=== PATIENT | female | born 1940 | race Caucasian/White ===

== ENCOUNTER → 2016-11-10 | Outpatient (CLI) | payer MEDICARE, BC ==
--- NOTE | 2016-11-10 10:09 | US ---
EXAMINATION TYPE: US extremity nonvasculr ltd RT DATE OF EXAM: 11/10/2016 9:28 AM COMPARISON: NONE CLINICAL HISTORY: Pain. FINDINGS: Complex appearing cyst measuring 7.3 x 6.3 x 5.5cm within the posterior popliteal fossa IMPRESSION: 1. Large 7.3 cm complicated cyst most likely in the basis of a complicated Byrne's cyst. Follow-up MR I could be obtained for confirmation.
== END ==
LOC: RADUSMAIN 08:47
PROVIDERS: ATTEND Orthopaedic Surgery
DX: M71.21 Synovial cyst of popliteal space [Baker], right knee (principal); M25.561 Pain in right knee

== ENCOUNTER 2016-11-16 08:46 | Day surgery (SDC) | payer MEDICARE, BC ==
[2016-11-16] MEDS ORDERED: TRIAMCINOLONE ACETONIDE 40 MG/ML 1 ML VIAL INTRABURSA ONE (10:31)
--- NOTE | 2016-11-16 12:38 | US ---
EXAMINATION TYPE: US fine needle aspiration DATE OF EXAM: 11/16/2016 11:59 AM HISTORY: Aspiration of right Byrne's cyst Comparison: None. Informed consent was obtained and all the patient's questions were answered. The patient's right popl iteal fossa cyst was localized sonographically. Standard sterile technique was utilized as well as ap propriate local anesthesia with 1% lidocaine and bicarbonate. An 18-gauge needle was introduced into the Byrne's cyst and approximately 150 cc of brownish colored fluid was aspirated. Approximately 95% of the cyst was aspirated. Subsequently steroid was injected into the Byrne's cyst followed by a smal l amount of lidocaine. The patient tolerated the procedure well and left the department in stable condition. IMPRESSION: 1. Successful ultrasound-guided aspiration of Byrne's cyst.
[2016-11-16 12:57] VITALS: TEMP 98
[2016-11-16 13:07] VITALS: BP 104/64; PULSE 66; RESP 18
== END 2016-11-16 12:00 | disposition home or self-care (01) ==
LOC: RADPROMAIN 08:46
PROVIDERS: ATTEND Orthopaedic Surgery
DX: M71.21 Synovial cyst of popliteal space [Baker], right knee (principal)
CPT/HCPCS: 87070; 87205; 87075; 76942; 10022; J3301; 87077; 87186

== ENCOUNTER 2016-12-10 17:58 | Emergency (ER) | payer MEDICARE, BC, OTHER ==
[2016-12-10 18:09] VITALS: BP 107/58; PULSE 88; TEMP 98.7
--- NOTE | 2016-12-10 18:20 | ED ---
General Adult HPI - General Chief complaint: Recheck/Abnormal Lab/Rx Stated complaint: PEG TUBE REPLACEMENT Time Seen by Provider: 12/10/16 18:05 Source: EMS Mode of arrival: EMS Limitations: no limitations - History of Present Illness Initial comments: 76-year-old female patient presents emergency department for evaluation of her PEG tube. Patient states that last night she was getting a shower by an aide aide accidentally removed the tube. Patient states had tried multiple times to reinsert the tube. They do have one in place at this time, but she states they' re unable to instill any fluid through it. There is also some yellow drainage from around the tube. She states she is tender around the area. She denies any vomiting or nausea. She denies any constipation or diarrhea. Denies any fever or chills. - Related Data Home Medications Medication Instructions Recorded Confirmed Aspirin 81 mg PO HS 03/19/14 11/07/16 Digoxin [Digox] 125 mcg PO DAILY 03/19/14 11/07/16 Famotidine 20 mg PO HS 03/19/14 11/07/16 Folic Acid 1 mg PO HS 03/19/14 11/07/16 Levothyroxine Sodium [Synthroid] 75 mcg PO DIRECTED 03/19/14 11/07/16 Potassium Chloride [Klor-Con 20] 20 meq PO DAILY 03/19/14 11/07/16 Cholecalciferol [Vitamin D3] 2,000 unit PO DAILY 01/01/15 11/07/16 Melatonin 1 mg PO HS 01/01/15 11/07/16 Albuterol Nebulized [Ventolin 2.5 mg INHALATION RT-QID 10/29/15 11/07/16 Nebulized] Ferrous Sulfate [Feosol] 325 mg PO DAILY 10/29/15 11/07/16 Furosemide [Lasix] 60 mg PO DAILY 10/29/15 11/07/16 Jevity 1 Regis 1 dose PEG/G-TUBE DAILY@1999 #0 10/29/15 11/07/16 Mag Hydrox/Al Hydrox/Simeth 5 ml TOPICAL BID PRN 10/29/15 11/07/16 [Maalox] Multivitamins, Thera [Multivitamin 1 tab PO DAILY 10/29/15 11/07/16 (formulary)] predniSONE 5 mg PO HS 10/29/15 11/07/16 ALPRAZolam [Xanax] 0.25 mg PO BID PRN 02/26/16 11/07/16 Leflunomide [Arava] 20 mg PO DAILY 02/26/16 11/07/16 Morphine Sulfate ER [Ms Contin 15 mg PO Q12HR 02/26/16 11/07/16 15Mg] oxyCODONE-APAP 7.5-325MG [Percocet 1 tab PO Q6HR PRN 02/26/16 11/07/16 7.5-325 mg] Ibuprofen [Motrin] 600 mg PO Q8HR PRN 11/07/16 11/07/16 Levothyroxine Sodium [Synthroid] 50 mcg PO DIRECTED 11/07/16 11/07/16 Methyl Salicylate/Menthol 1 patch TOPICAL DAILY 11/07/16 11/07/16 [Salonpas Patch] Depo-Medrol Suspension 40mg/Ml 40 mg IM DAILY PRN 12/10/16 12/10/16 Liqui-Tears Solution (Polyvinyl 1 drop BOTH EYES Q8H PRN 12/10/16 12/10/16 Alcohol) Saliva Stimulant Agents Comb.3 1 spray MUCOUS MEM Q8H PRN 12/10/16 12/10/16 [Biotene Moisturizing Mouth] Previous Rx's Medication Instructions Recorded Carvedilol [Coreg] 3.125 mg PO BID #60 tab 03/27/14 Ipratropium Nebulized [Atrovent 0.5 mg INHALATION RT-QID #120 nebu 08/27/14 Nebulized] Sennosides/Docusate Sodium 1 tab PO DAILY #1 tab 11/02/15 [Tonie-Colace Tablet] Allergies Allergy/AdvReac Type Severity Reaction Status Date / Time lorazepam [From Ativan] Allergy Unknown Verified 12/10/16 18:23 Review of Systems ROS Statement: Those systems with pertinent positive or pertinent negative responses have been documented in the HPI. ROS Other: All systems not noted in ROS Statement are negative. Past Medical History Past Medical History: Atrial Fibrillation, Coronary Artery Disease (CAD), Heart Failure, COPD, Deep Vein Thrombosis (DVT), GERD/Reflux, Pneumonia, Thyroid Disorder Additional Past Medical History / Comment(s): 10-29-15 admitted for c/o sob/nash. clinical impression: sarath pneumonia, renal insufficiency, dehydration. other past medical hx includes: hypothyroidism, rheumatoid arthritis, bronchitis,pt stated uses 02 off and on not sure how many liters dvt, chf, PE, anemia, occ constipation, tia per old hx History of Any Multi-Drug Resistant Organisms: MRSA Date of last positivie culture/infection: 11/16/16 MDRO Source:: Right Knee Past Surgical History: Hysterectomy, Orthopedic Surgery, Tonsillectomy Additional Past Surgical History / Comment(s): right knee replacement, PEG Tube , cataract egd, colonoscopy Past Anesthesia/Blood Transfusion Reactions: No Reported Reaction Past Psychological History: Anxiety, Depression Smoking Status: Former smoker Past Alcohol Use History: None Reported Additional Past Alcohol Use History / Comment(s): started smoking at age 15 smoked 1ppd, quit 2011 Past Drug Use History: None Reported - Past Family History Father Family Medical History: Coronary Artery Disease (CAD) Additional Family Medical History / Comment(s): enlarged heart Mother History Unknown: Yes Additional Family Medical History / Comment(s): mom during child irth at age 32 General Exam Limitations: no limitations General appearance: alert, in no apparent distress Head exam: Present: atraumatic, normocephalic, normal inspection Eye exam: Present: normal appearance, PERRL, EOMI. Absent: scleral icterus, conjunctival injection, periorbital swelling ENT exam: Present: normal exam, normal oropharynx, mucous membranes moist Neck exam: Present: normal inspection. Absent: tenderness, meningismus, lymphadenopathy Respiratory exam: Present: normal lung sounds bilaterally. Absent: respiratory distress, wheezes, rales, rhonchi, stridor Cardiovascular Exam: Present: regular rate, normal rhythm, normal heart sounds. Absent: systolic murmur, diastolic murmur, rubs, gallop, clicks GI/Abdominal exam: Present: soft, tenderness (Mild Tenderness around PEG tube insertion site), normal bowel sounds, other (PEG tube in place in the left upper quadrant. Mild erythema surrounding insertion site. Yellow drainage noted.). Absent: distended, guarding, rebound, rigid, organomegaly, mass, hernia Extremities exam: Present: normal inspection, full ROM, normal capillary refill. Absent: tenderness, pedal edema, joint swelling, calf tenderness Neurological exam: Present: alert, oriented X3, CN II-XII intact Psychiatric exam: Present: normal affect, normal mood Skin exam: Present: warm, dry, intact, normal color. Absent: rash Course Vital Signs 12/10/16 18:04 Temperature 98.7 F Pulse Rate 88 Respiratory 18 Rate Blood Pressure 107/58 O2 Sat by Pulse 96 Oximetry - Reevaluation(s) Reevaluation #1: 12/10/16 18:37 Into flush PEG tube. PEG tube flushed without any difficulties. We'll obtain a PEG gram to make sure that it is the correct position. Medical Decision Making - Medical Decision Making 76-year-old female patient was sent from [facility] on the [facility] for evaluation of her PEG tube. They were concerned that the tube was not in the correct place and she was having leakage around the tube. Was able to easily and still 60 mL of water through the tube. KUB with contrast was obtained and showed a properly placed tube with the contrast into the stomach and into the duodenum. No leakage of water or contrast noted around the tube. Tube is functioning appropriately. Will be discharged back to extended care facility with the same tube in place. Patient instructed to return for any new, worsening, or concerning symptoms. Did discuss this with daughter as well. Patient and daughter verbalized understanding and agreement with this plan. - Radiology Data Radiology results: report reviewed, image reviewed KUB x-ray with contrast installation through PEG tube reveals an appropriately placed percutaneous enteric gastric tube installation of contrast into the gastric body flowing into the proximal duodenum. Nonabsorbable bowel gas pattern with moderate colonic stool burden. Unchanged left mid abdominal calcific densities which could relate to nephrolithiasis. Disposition Clinical Impression: PEG tube malfunction Disposition: HOME SELF-CARE Condition: Stable Instructions: Percutaneous Endoscopic Gastrostomy (ED), How to Use and Care for Your PEG Tube (ED) Additional Instructions: Make sure tube is cinched to skin. Follow-up with primary care physician for additional PEG tube concerns. Return for any worsening, new, or concerning symptoms. Referrals: Jake Coombs MD [Primary Care Provider] - 1-2 days Time of Disposition: 19:36
--- NOTE | 2016-12-10 19:24 | XR ---
EXAMINATION TYPE: XR KUB DATE OF EXAM: 12/10/2016 7:02 PM COMPARISON: 10/10/2013 HISTORY: Reinsertion of PEG tube. TECHNIQUE: Single portable supine radiograph of the abdomen was obtained after the injection of 27 mL of Omnipaque 350 through the percutaneous enteric gastric tube. FINDINGS: Oral contrast readily flows through the percutaneous enteric gastric tube which is placed i n the distal gastric body opacifying the rugal folds of the gastric lumen of the body, fundus, and po rtions of the antrum. Contrast also flows into the proximal small bowel. Moderate amount of colonic stool is retained throughout the colon. There is a nonobstructive bowel ga s pattern. Calcific atheromatous changes are seen of the distal abdominal aorta and its branches. Deg enerative changes of the osseous structures are noted. Calcific densities overlie the left mid abdome n and are unchanged from the prior exam. IMPRESSION: 1. Appropriately placed percutaneously enteric gastric tube with instillation of contrast into the ga stric body flowing into the proximal duodenum. 2. Nonobstructive bowel gas pattern with moderate colonic stool burden. 3. Unchanged left mid abdominal calcific densities which could relate to nephrolithiasis.
[2016-12-10 21:07] VITALS: RESP 16
== END 2016-12-10 21:07 | disposition home or self-care (01) ==
LOC: EC 17:58
DX: K94.23 Gastrostomy malfunction (principal); R93.5 Abnormal findings on diagnostic imaging of other abdominal regions, including retroperitoneum; I48.91 Unspecified atrial fibrillation; I50.9 Heart failure, unspecified; J44.9 Chronic obstructive pulmonary disease, unspecified; E07.9 Disorder of thyroid, unspecified; Z87.891 Personal history of nicotine dependence; Z79.82 Long term (current) use of aspirin; Z79.891 Long term (current) use of opiate analgesic; Z79.899 Other long term (current) drug therapy; Z88.8 Allergy status to other drugs, medicaments and biological substances
CPT/HCPCS: 99283; 74000; Q9967

== ENCOUNTER 2016-12-12 14:09 | Emergency (ER) | payer MEDICARE, BC, OTHER ==
[2016-12-12 14:41] VITALS: BP 102/55; RESP 18
--- NOTE | 2016-12-12 15:04 | ED ---
General Adult HPI - General Chief complaint: Recheck/Abnormal Lab/Rx Stated complaint: PEG tube issues Time Seen by Provider: 12/12/16 14:29 Source: patient Mode of arrival: EMS - History of Present Illness Initial comments: 76 years old female resident of [facility] sent from [facility] with a request to remove the feeding tube patient is not quite clear why do you want to removed. I was able to speak with her durable power Jane Adame , she is a patient' s daughter and also spoke with her primary care physician Dr. Coombs. They're happy with the oral intake and they want the tube to be removed. Review of system is otherwise negative him a no other complaints at all - Related Data Home Medications Medication Instructions Recorded Confirmed Aspirin 81 mg PO HS 03/19/14 12/12/16 Digoxin [Digox] 125 mcg PO DAILY 03/19/14 12/12/16 Famotidine 20 mg PO HS 03/19/14 12/12/16 Folic Acid 1 mg PO HS 03/19/14 12/12/16 Levothyroxine Sodium [Synthroid] 75 mcg PO SUTUTHSA 03/19/14 12/12/16 Potassium Chloride [Klor-Con 20] 20 meq PO DAILY 03/19/14 12/12/16 Cholecalciferol [Vitamin D3] 2,000 unit PO DAILY@1700 01/01/15 12/12/16 Melatonin 1 mg PO HS 01/01/15 12/12/16 Albuterol Nebulized [Ventolin 2.5 mg INHALATION RT-QID 10/29/15 12/12/16 Nebulized] Ferrous Sulfate [Feosol] 325 mg PO DAILY 10/29/15 12/12/16 Furosemide [Lasix] 60 mg PO DAILY 10/29/15 12/12/16 Jevity 1 Regis 1 dose PEG/G-TUBE DAILY@1600 #0 10/29/15 12/12/16 Mag Hydrox/Al Hydrox/Simeth 5 ml TOPICAL BID PRN 10/29/15 12/12/16 [Maalox] Multivitamins, Thera [Multivitamin 1 tab PO DAILY@1700 10/29/15 12/12/16 (formulary)] predniSONE 5 mg PO DAILY 10/29/15 12/12/16 ALPRAZolam [Xanax] 0.125 mg PO BID PRN 02/26/16 12/12/16 Leflunomide [Arava] 20 mg PO DAILY 02/26/16 12/12/16 Morphine Sulfate ER [Ms Contin 15 mg PO Q12HR 02/26/16 12/12/16 15Mg] oxyCODONE-APAP 7.5-325MG [Percocet 1 tab PO Q6HR PRN 02/26/16 12/12/16 7.5-325 mg] Ibuprofen [Motrin] 600 mg PO TID-W/MEALS PRN 11/07/16 12/12/16 Levothyroxine Sodium [Synthroid] 50 mcg PO MOWEFR 11/07/16 12/12/16 Methyl Salicylate/Menthol 1 patch TOPICAL DAILY 11/07/16 12/12/16 [Salonpas Patch] Depo-Medrol Suspension 40mg/Ml 40 mg IM DAILY PRN 12/10/16 12/12/16 Liqui-Tears Solution (Polyvinyl 1 drop BOTH EYES Q8H PRN 12/10/16 12/12/16 Alcohol) Saliva Stimulant Agents Comb.3 1 spray MUCOUS MEM Q8H PRN 12/10/16 12/12/16 [Biotene Moisturizing Mouth] Dimethicone/Zinc Oxide [Inzo Zinc 1 applic TOPICAL BID 12/12/16 12/12/16 Oxide Barrier Cream] Sennosides-Docusate Sodium 1 tab PO DAILY 12/12/16 12/12/16 [Senokot-S] Previous Rx's Medication Instructions Recorded Carvedilol [Coreg] 3.125 mg PO BID #60 tab 03/27/14 Ipratropium Nebulized [Atrovent 0.5 mg INHALATION RT-QID #120 nebu 08/27/14 Nebulized] Allergies Allergy/AdvReac Type Severity Reaction Status Date / Time lorazepam [From Ativan] Allergy Unknown Verified 12/12/16 14:39 Review of Systems ROS Statement: Those systems with pertinent positive or pertinent negative responses have been documented in the HPI. ROS Other: All systems not noted in ROS Statement are negative. Past Medical History Past Medical History: Atrial Fibrillation, Coronary Artery Disease (CAD), Heart Failure, COPD, Deep Vein Thrombosis (DVT), GERD/Reflux, Pneumonia, Thyroid Disorder Additional Past Medical History / Comment(s): 2-18-16 admitted for c/o sob/nash. clinical impression: sarath pneumonia, renal insufficiency, dehydration. other past medical hx includes: hypothyroidism, rheumatoid arthritis, bronchitis,pt stated uses 02 off and on not sure how many liters dvt, chf, PE, anemia, occ constipation, tia per old hx History of Any Multi-Drug Resistant Organisms: MRSA Date of last positivie culture/infection: 11/16/16 MDRO Source:: Right Knee Past Surgical History: Hysterectomy, Orthopedic Surgery, Tonsillectomy Additional Past Surgical History / Comment(s): right knee replacement, PEG Tube , cataract egd, colonoscopy Past Anesthesia/Blood Transfusion Reactions: No Reported Reaction Past Psychological History: Anxiety, Depression Smoking Status: Former smoker Past Alcohol Use History: None Reported Additional Past Alcohol Use History / Comment(s): started smoking at age 15 smoked 1ppd, quit 2011 Past Drug Use History: None Reported - Past Family History Father Family Medical History: Coronary Artery Disease (CAD) Additional Family Medical History / Comment(s): enlarged heart Mother History Unknown: Yes Additional Family Medical History / Comment(s): mom during child irth at age 32 General Exam - General Exam Comments Initial Comments: General: The patient is awake and alert, in no distress, and does not appear acutely ill. Skin: Skin is warm and dry and no rashes or lesions are noted. Eye: Pupils are equal, round and reactive to light, extra-ocular movements are intact; there is normal conjunctiva bilaterally. Ears, nose, mouth and throat: There are moist mucous membranes and no oral lesions. Neck: The neck is supple, there is no tenderness or JVD. Cardiovascular: There is a regular rate and rhythm. No murmur, rub or gallop is appreciated. Respiratory: To auscultation bilateral, no wheezing no rhonchi no distress respiratory suqires noticed Gastrointestinal: Soft, non-distended, noticed some decrease in secretions around the lumen of the feeding tube and around the stoma noticed some erythema , the area was cultured. Back: There is no tenderness to palpation in the midline. There is no obvious deformity. Musculoskeletal: Normal ROM, no tenderness, There is no pedal edema. There is no calf tenderness or swelling. No cords were appreciated. Neurological: CN II-XII intact, Cranial nerves III through XII are intact. There are no obvious motor or sensory deficits. Coordination appears grossly intact. Speech is normal. Psychiatric: Cooperative, appropriate mood & affect, normal judgment. Course Vital Signs 12/12/16 14:26 Temperature 98.4 F Pulse Rate 89 Respiratory 18 Rate Blood Pressure 102/55 O2 Sat by Pulse 96 Oximetry , Feeding tube was removed after discussing the family doctor as well as a DuoNeb of any then also discussed with Dr. Tom Colvin advised to stick to doubt that a heavy-duty padding the wound will close she advised not to stitch the wound Disposition Clinical Impression: Feeding tube dysfunction Disposition: HOME SELF-CARE Condition: Good
[2016-12-12 15:50] VITALS: PULSE 85; TEMP 98
== END 2016-12-12 15:50 | disposition home or self-care (01) ==
LOC: EC 14:09
DX: K94.23 Gastrostomy malfunction (principal); F41.9 Anxiety disorder, unspecified; I50.9 Heart failure, unspecified; E03.9 Hypothyroidism, unspecified; D64.9 Anemia, unspecified; M06.9 Rheumatoid arthritis, unspecified; J44.9 Chronic obstructive pulmonary disease, unspecified; I48.91 Unspecified atrial fibrillation; I25.10 Atherosclerotic heart disease of native coronary artery without angina pectoris; Z88.8 Allergy status to other drugs, medicaments and biological substances; Z87.891 Personal history of nicotine dependence; Z79.82 Long term (current) use of aspirin; Z79.51 Long term (current) use of inhaled steroids; Z79.891 Long term (current) use of opiate analgesic; Z79.899 Other long term (current) drug therapy
CPT/HCPCS: 87070; 87077; 87186; 87205; 99283

== ENCOUNTER 2017-03-09 11:17 | Day surgery (SDC) | payer MEDICARE, BC, OTHER ==
--- NOTE | 2017-03-09 12:17 | XR ---
EXAMINATION TYPE: XR knee complete RT DATE OF EXAM: 03/09/2017 COMPARISON: NONE HISTORY: 76-year-old female with right knee pain and swelling. Per IR nurse, patient's 11/16/2016 Byrne 's cyst aspiration grew MRSA. TECHNIQUE: 3 views FINDINGS: Images show right total knee arthroplasty. No distal femoral and proximal tibial components of the pr osthesis appear well seated. There appears to be an underlying infrapatellar knee joint effusion. Sof t tissue swelling is present about the knee. Extensor mechanism is intact. IMPRESSION: 1. Soft tissue swelling and underlying knee joint effusion in the infrapatellar region. Appropriate f ollow-up and management is recommended if concern for underlying infection. 2. No suzanne hardware loosening or periprosthetic fracture.
[2017-03-09 14:21] VITALS: TEMP 98.3
[2017-03-09 14:28] VITALS: BP 100/61; PULSE 86; RESP 18
--- NOTE | 2017-03-09 23:33 | US ---
Exam: Ultrasound guided right knee aspiration DATE: 03/09/2017. History: 76-year-old female mass along the posterolateral knee. Patient with joint replacement. Byrne 's cyst aspiration on 11/10/2016 with fluid sent for cultures grew MRSA Findings: There is a very large heterogeneous fluid collection with debris at the site of patient's palpable ab normality lateral and posterolateral aspect of the knee. This is targeted for ultrasound-guided aspir ation. After having discussed risks ( bleeding and infection) and benefits informed written consent was obtained from the patient. The site was marked, cleansed and draped utilizing aseptic technique. Critical pause was performed. 1% lidocaine was used for local anesthesia. An 18 gauge long needle was introduced into the fluid collection utilizing ultrasound isaac dance. Once confirmation of needle tip within the joint was obtained aspiration was attempted which r esulted in aspiration of a total of 170 mL of purulent, brownish, debris filled, and blood-tinged flu id. The fluid was sent for requested laboratory evaluation. Patient tolerated the procedure without immediate complication. IMPRESSION: 1. Successful ultrasound-guided aspiration of large purulent collection posterolateral aspect of the right knee. 170 mL of fluid was aspirated and sent for cultures with cell count and differential. 2. Appropriate further clinical treatment and management is recommended.
== END 2017-03-09 13:30 ==
LOC: RADPROMAIN 11:17
PROVIDERS: ATTEND Orthopaedic Surgery
DX: M25.461 Effusion, right knee (principal); T84.53XA Infection and inflammatory reaction due to internal right knee prosthesis, initial encounter; B95.62 Methicillin resistant Staphylococcus aureus infection as the cause of diseases classified elsewhere; M17.11 Unilateral primary osteoarthritis, right knee
CPT/HCPCS: 20611; 76942; 87070; 87075; 87077; 87186; 87205; 89050